=== PATIENT | female | born 1955 | race Caucasian/White ===

== ENCOUNTER 2018-04-08 16:59 | Emergency (ER) | payer MEDICARE, SELFPAY ==
[2018-04-08 17:00] VITALS: BP 139/86; PULSE 91; RESP 16; TEMP 36.4; O2SAT 93; BMI 30.4
--- NOTE | 2018-04-08 17:26 | EKG12_ITS ---
Test Reason : DYSRHYTHMIA Blood Pressure : / mmHG Vent. Rate : 080 BPM Atrial Rate : 080 BPM P-R Int : 170 ms QRS Dur : 076 ms QT Int : 390 ms P-R-T Axes : 069 056 051 degrees QTc Int : 449 ms Normal sinus rhythm Normal ECG Confirmed by MEBLA PELLETIER, ROBERT ([id number]), graphics editor MARAL DUGGAN ([id number]) on 04/13/2018 2:47:46 PM Referred By: PASTOR Confirmed By:ROBERT REILLY MD
--- NOTE | 2018-04-08 17:28 | RAD_ITS ---
STUDY: X-RAY - PELVIS AND LEFT HIP REASON FOR EXAM: Female, 62 years old. Back and left hip pain bilateral leg and feet swelling. TECHNIQUE: Radiological exam, hip, unilateral, with pelvis when performed; 2 or 3 views. COMPARISON: None. FINDINGS: There is a non-specific bowel gas pattern. Normal visualized soft tissue structures. Normal bilateral iliac wings, sacroiliac joints and visualized sacrum. Normal bilateral superior and inferior pubic rami. Normal pubic symphysis. Normal bilateral ischial tuberosities. Normal visualized femoral head. Normal acetabulum. Normal hip joint. RAD/Hip 2-3 Views with Pelvis IMPRESSION: Normal x-ray examination of the pelvis and hip. Electronically Signed: Karen Gannon MD at 18:47 EDT , Service support ,
--- NOTE | 2018-04-08 17:29 | ED.VISSUMM ---
- ER Visit Summary Date of Service: 04/08/18 Chief Complaint: [] Bilateral lower extremity edema for weeks left hip pain History of Present Illness: The patient is a 62 F [] Street of COPD asthma hypertension anxiety and depression indicates for a number of weeks she has had bilateral lower extremity edema and left hip pain states she walks quite a bit because she has no transportation, but she suffered no injury she has had no fever no cough no chest pain shortness of breath or abdominal pain normal bowel bladder habits. She has no history of ME CHF liver disease DVT or PE she is scheduled to see her physicians end of April but did not want to wait that long, the edema is not necessarily improved with rest and again she has had no mobility no cancer no trauma no history of DVT in this is an ongoing problem involving both lower extremities Physical Examination: [] Is in no distress she is resting comforting the bed her vital signs are within normal range head neck chest unremarkable lungs sound clear the heart tones are normal abdomen soft nontender the back is unremarkable she has full range of motion of the knees hips ankles and feet there is about 1-2+ edema to the mid tib-fib regions bilaterally there is some mild edema to the feet dorsally. There is normal pulsation cap refill and sensation she has very large toenails that need to management the skin is intact there is no signs of infection DVT there is no pain to the medial thighs she has full range of motion of her hips she complains of some very mild pain over her left greater trochanter but full range of motion her gait is strong sitting stable Test Results: [] Emergency Department Course and Treatment: [] Labs x-rays EKG labs x-rays are all generally unremarkable please see those reports I have treated with 1 dose of oral Lasix chronically she looks well she has some very mild edema I explained all the above to her the need for her to elevate her legs limited to walking follow-up her family physicians for further management options there is no signs at this time infection DVT or trauma causing in the above this appears to be edematous dependent edema she has been walking quite a bit and she will follow those instructions return for change in symptoms Treatment Plan: [] Disposition: [] Home stable Impression: [] Lower extremity edema This note was generated with [employer] software. It may contain incorrect words, spelling, and punctuation that were not noted in review of the chart prior to signing ED Disposition - Plan for ED Patient: Chief Complaint: Back Referrals: Rossana Rhodes MD [Primary Care Provider] -
[2018-04-08 18:11] LABS: Absolute Lymphocyte Count 2.66 X10^3/ul (0.83-4.51); Absolute Neutrophil Count 5.9 X10^3/uL (2.0-7.7); Basophil# 0.02 X10^3/uL; Basophil% 0.2 % (0-1); Eosinophils% 3.1 % (0-5); Hematocrit 36.5 % (37-47); Hemoglobin 11.8 g/dl (12.0-15.0); Lymphocyte # 2.66 X10^3/ul (4.0); Lymphocyte % 27.9 % (19-41); Mean Corp Hgb Conc 32.3 g/gl (32-36); Mean Corpuscular Hgb 30.4 pg (27.0-32.0); Mean Corpuscular Volume 94.1 fL (81-99); Monocyte# 0.66 X10^3/uL; Monocyte% 6.9 % (0-10); Neutrophil # 5.86 X10^3/uL (2.7-7.7); Neutrophil % 61.6 % (47-70); Platelet Count 328 K/mm3 (150-450); RBC Distribution Width CV 14.9 % (11.6-14.6); RBC Distribution Width SD 50.6 fl (35.1-43.9); Red Blood Count 3.88 M/mm3 (4.2-5.4); White Blood Count 9.5 K/mm3 (4.4-11.0)
[2018-04-08 18:12] LABS: POSITIVE COUNT NO; POSITIVE DIFFERENTIAL NO; POSITIVE MORPHOLOGY NO
--- NOTE | 2018-04-08 18:20 | RAD_ITS ---
STUDY: X-RAY CHEST REASON FOR EXAM: Female, 62 years old. Back and left hip pain. Bilateral leg and feet swelling. TECHNIQUE: 1 view COMPARISON: None. FINDINGS: The lungs are clear and expanded. There is no demonstrated pleural abnormality. Normal size heart. Normal mediastinum and ivette. Normal visualized pulmonary arteries. Normal visualized aortic arch and descending thoracic aorta. Normal visualized thoracic spine. Multiple prior healed left rib fractures. There is no demonstrated abnormality of the visualized soft tissue structures of the upper abdomen. RAD/Chest 1 View (Portable) IMPRESSION: No acute cardiopulmonary findings. Negative for consolidation, atelectasis, pleural effusion or cardiomegaly. Electronically Signed: Karen Gannon MD at 18:48 EDT , Service support ,
[2018-04-08 18:31] LABS: AST(SGOT) 43 U/L (15-37); Alanine Aminotransfer ALT/SGPT 62 U/L (13-56); Albumin, Serum 3.2 g/dL (3.2-5.0); Alkaline Phosphatase 102 U/L (45-117); Anion Gap 7 (5-15); BUN 9 mg/dL (7-18); BUN/Creat Ratio 10.7 RATIO (10-20); Bilirubin, Direct 0.08 mg/dL (0.00-0.30); Calcium,Total 8.6 mg/dL (8.5-10.1); Chloride 97 mmol/L (98-107); Creatinine, Serum 0.84 mg/dL (0.55-1.02); EST Glomerular Filtration Rate 73 mL/min (>60); Est Glom Filt Rate - Afr Amer 88 mL/min (>60); Estimated Creatinine Clearance 70.84 ml/min; Globulin 3.6 g/dL (2.2-4.2); Glucose 80 mg/dL (74-106); Protein, Total 6.8 g/dL (6.4-8.2); Sodium Level 133 mmol/L (136-145)
[2018-04-08 18:31] LABS: Bacteria 0 SEEN /hpf (None Seen); Mucous, Urine 0 SEEN /hpf (<or=2+); Red Blood Cells-Urine 0 SEEN /hpf (0-5); White Blood Cells 0 SEEN /hpf (0-5)
[2018-04-08 18:41] LABS: BNP,B-Type NATRIURETIC PEPTIDE 31.7 pg/mL (0-100)
[2018-04-08 18:46] LABS: Color, Urine Yellow (Yellow); Glucose, Dipstick Normal (Normal); Ketone-Dipstick Negative (Negative); Leukocyte Esterase-Dipstick Negative /ul (Negative); Nitrite-Dipstick Negative (Negative); Occult Blood-Urine Negative /ul (Negative); Protein-Dipstick Negative (Negative); Specific Gravity, Urine 1.005 (1.002-1.030); Urine Bilirubin Dipstick Negative (Negative); Urine Clarity Clear (Clear); Urine Urobilinogen Normal (Normal)
[2018-04-08 18:54] LABS: Squamous Epithelial Cells - UA 0-5 SEEN /hpf (5-10)
--- NOTE | 2018-04-08 19:06 | ED.DEP ---
ED Disposition - Plan for ED Patient: Chief Complaint: Back Instructions: ED Leg Swelling Bilateral Referrals: Rossana Rhodes MD [Primary Care Provider] -
[2018-04-08] MEDS: Furosemide 40 MG Tablet PO (19:11)
[2018-04-08 19:27] VITALS: BP 156/84; PULSE 80; RESP 20; O2SAT 94
== END 2018-04-08 19:28 | disposition home or self-care (01) ==
PROVIDERS: Emergency Provider Emergency Medicine; Family Provider Internal Medicine; PCP Internal Medicine
DX: R60.0 Localized edema (principal); M25.552 Pain in left hip; J44.9 Chronic obstructive pulmonary disease, unspecified; I10 Essential (primary) hypertension; F41.9 Anxiety disorder, unspecified; F32.9 Major depressive disorder, single episode, unspecified; Z79.899 Other long term (current) drug therapy
CPT/HCPCS: 71045; 73502; 80048; 80076; 81001; 83880; 84484; 85025; 87086; 87088; 93005; 99284; A4216

== ENCOUNTER 2018-08-20 13:15 | Emergency (ER) | payer MEDICARE, SELFPAY ==
[2018-08-20 13:15] VITALS: BP 169/99; PULSE 69; RESP 13; O2SAT 97
[2018-08-20 13:16] VITALS: BP 169/99; PULSE 75; RESP 18; TEMP 36.7; O2SAT 97; BMI 27.4
--- NOTE | 2018-08-20 13:32 | RAD_ITS ---
STUDY: X-RAY CHEST REASON FOR EXAM: Female, 62 years old. Left chest wall pain following a fall. TECHNIQUE: PA and lateral views of the chest. COMPARISON: Comparison is made with prior study dated April 08, 2018. FINDINGS: EKG electrodes are seen. Hyperinflation. Scattered calcified granulomas. Minimal increased markings at the lung bases suggestive of basilar scarring. There is no demonstrated pleural abnormality. Normal size heart. Normal mediastinum and ivette. Normal visualized pulmonary arteries. Normal visualized aortic arch and descending thoracic aorta. Normal visualized thoracic spine. Normal visualized ribs, clavicles, and shoulders. There is no demonstrated abnormality of the visualized soft tissue structures of the upper abdomen. RAD/Chest PA and Lateral IMPRESSION: Hyperinflation. Mild increased linear markings at the lung bases suggestive of basilar scarring. Electronically Signed: Gutierrez Francis MD at 14:18 EST Tel [phone], Service support ,
--- NOTE | 2018-08-20 14:05 | ED.VISSUMM ---
- ER Visit Summary Date of Service: 08/20/18 Chief Complaint: Left-sided chest pain History of Present Illness: The patient is a 62 F states that she has had gradual intermittent sharp chest pain in the left chest wall for 1 month. It is nonexertional. Not associated with shortness of breath, nausea or diaphoresis. She states she has had a negative stress test in the past. Has never had a cardiac catheterization. She states it is worse with movement or sitting upright. She denies any history of DVT or PE. No recent travel, surgery, immobilization. No recent hospitalization or swelling in her calves or pain. No hemoptysis. Physical Examination: Well-appearing middle-age female. Vital signs are stable afebrile. Pulse ox 97% on room air no hypoxia. H EENT exam unremarkable. Neck nontender no JVD no lymphadenopathy. Lungs clear to auscultation bilaterally. Heart regular rhythm no murmur heart rate about 70. Chest wall is reproducibly tender in the lower sternum and lower left rib cage. There is no ecchymosis or bruising. No subcu air or crepitance. This is the same pain she is having. Abdomen soft and nontender. Normal bowel sounds no peritoneal signs. Extremities moves all 4. Calves nontender no edema nor cords. Neurologically she is awake and alert with no focal motor or sensory deficits. Equal symmetrical drywall hanger helper strength. Lower extremities calves are nontender without edema or cords. Back exam nontender. Test Results: Patient's EKG showed a sinus rhythm at a rate of 74 with no acute signs of IA or ischemia. No pericarditis. Chest x-ray 2 views read by myself shows no acute abnormality. Normal cardiac silhouette. Mediastinum. No pneumothorax. No infiltrate. Emergency Department Course and Treatment: Patient's exam and history consistent with chest wall pain. Consistent with her stating that she fell. This does not seem to be cardiac. Treatment Plan: Discharged home. Ice to chest wall. Tylenol and Motrin for pain. Follow-up with her primary care physician if not improving. Disposition: Discharge Impression: Left chest wall pain status post fall This note was generated with [employer] dictation software. It may contain incorrect words, spelling, and punctuation that were not noted in review of the chart prior to signing ED Disposition - Plan for ED Patient: Chief Complaint: Chest Pain Referrals: Rossana Rhodes MD [Primary Care Provider] -
--- NOTE | 2018-08-20 14:09 | ED.DCSUM_ITS ---
- ER Visit Summary Date of Service: 08/20/18 Chief Complaint: Left-sided chest pain History of Present Illness: The patient is a 62 F states that she has had gradual intermittent sharp chest pain in the left chest wall for 1 month. It is nonexertional. Not associated with shortness of breath, nausea or diaphoresis. She states she has had a negative stress test in the past. Has never had a cardiac catheterization. She states it is worse with movement or sitting upright. She denies any history of DVT or PE. No recent travel, surgery, immobilization. No recent hospitalization or swelling in her calves or pain. No hemoptysis. Physical Examination: Well-appearing middle-age female. Vital signs are stable afebrile. Pulse ox 97% on room air no hypoxia. H EENT exam unremarkable. Neck nontender no JVD no lymphadenopathy. Lungs clear to auscultation bilaterally. Heart regular rhythm no murmur heart rate about 70. Chest wall is reproducibly tender in the lower sternum and lower left rib cage. There is no ecchymosis or bruising. No subcu air or crepitance. This is the same pain she is having. Abdomen soft and nontender. Normal bowel sounds no peritoneal signs. Extremities moves all 4. Calves nontender no edema nor cords. Neurologically she is awake and alert with no focal motor or sensory deficits. Equal symmetrical coal screener strength. Lower extremities calves are nontender without edema or cords. Back exam nontender. Test Results: Patient's EKG showed a sinus rhythm at a rate of 74 with no acute signs of HI or ischemia. No pericarditis. Chest x-ray 2 views read by myself shows no acute abnormality. Normal cardiac silhouette. Mediastinum. No pneumothorax. No infiltrate. Emergency Department Course and Treatment: Patient's exam and history consistent with chest wall pain. Consistent with her stating that she fell. This does not seem to be cardiac. Treatment Plan: Discharged home. Ice to chest wall. Tylenol and Motrin for pain. Follow-up with her primary care physician if not improving. Disposition: Discharge Impression: Left chest wall pain status post fall This note was generated with [employer] dictation software. It may contain incorrect words, spelling, and punctuation that were not noted in review of the chart prior to signing ED Disposition - Plan for ED Patient: Chief Complaint: Chest Pain Referrals: Rossana Rhodes MD [Primary Care Provider] -
--- NOTE | 2018-08-20 14:09 | ED.DEP ---
ED Disposition - Plan for ED Patient: Disposition: Home or Assisted Living Chief Complaint: Chest Pain Instructions: ED Strain Chest Wall Referrals: Rossana Rhodes MD [Primary Care Provider] - 1 Week if not improving Additional Instructions: Ice to your chest wall. Tylenol and Motrin for chest wall pain. Use a pillow to brace your rib cage. If not improving follow-up with your doctor or if you are feeling worse.
[2018-08-20 14:23] VITALS: BP 151/74; PULSE 77; RESP 14; RESP 18; O2SAT 97
--- NOTE | 2018-08-20 15:15 | EKG12_ITS ---
Test Reason : CHEST PAIN Blood Pressure : / mmHG Vent. Rate : 074 BPM Atrial Rate : 074 BPM P-R Int : 162 ms QRS Dur : 074 ms QT Int : 418 ms P-R-T Axes : 074 054 046 degrees QTc Int : 463 ms Normal sinus rhythm Normal ECG Confirmed by LIBORIO PELLETIER, HANG ([id number]), rewrite editor MARAL DUGGAN ([id number]) on 08/23/2018 1:55:03 PM Referred By: SHERI Confirmed By:HANG CAPONE MD
== END 2018-08-20 14:36 | disposition home or self-care (01) ==
LOC: ED 14:27
PROVIDERS: Emergency Provider Emergency Medicine; Family Provider Internal Medicine; PCP Internal Medicine
DX: R07.89 Other chest pain (principal); W19.XXXA Unspecified fall, initial encounter; Y93.9 Activity, unspecified; Y92.9 Unspecified place or not applicable; J45.909 Unspecified asthma, uncomplicated; Z86.73 Personal history of transient ischemic attack (TIA), and cerebral infarction without residual deficits; Z79.899 Other long term (current) drug therapy; Z72.0 Tobacco use
CPT/HCPCS: 71046; 93005; 99282; A4216

== ENCOUNTER → 2018-11-30 08:46 | Outpatient (CLI) | payer MEDICARE, SELFPAY ==
[2018-11-30 09:36] LABS: Hematocrit 42.2 % (37-47); Hemoglobin 13.2 g/dl (12.0-15.0); Mean Corp Hgb Conc 31.3 g/gl (32-36); Mean Corpuscular Hgb 29.9 pg (27.0-32.0); Mean Corpuscular Volume 95.7 fL (81-99); Mean Platelet Vol. 10.3 fl (6.2-12.0); Platelet Count 391 K/mm3 (150-450); RBC Distribution Width CV 16.1 % (11.6-14.6); RBC Distribution Width SD 56.4 fl (35.1-43.9); Red Blood Count 4.41 M/mm3 (4.2-5.4); Scan Indicated on CBC? Y/N NO; White Blood Count 6.8 K/mm3 (4.4-11.0)
[2018-11-30 10:00] LABS: ALB/GLOB Ratio 0.9 RATIO (0.9-2.4); AST(SGOT) 18 U/L (15-37); Alanine Aminotransfer ALT/SGPT 20 U/L (13-56); Albumin, Serum 3.5 g/dL (3.2-5.0); Alkaline Phosphatase 117 U/L (45-117); Anion Gap 6 (5-15); BUN 6 mg/dL (7-18); BUN/Creat Ratio 5.8 RATIO (10-20); Calcium,Total 8.6 mg/dL (8.5-10.1); Chloride 104 mmol/L (98-107); Creatinine, Serum 1.03 mg/dL (0.55-1.02); EST Glomerular Filtration Rate 58 mL/min (>60); Est Glom Filt Rate - Afr Amer 70 mL/min (>60); Globulin 3.9 g/dL (2.2-4.2); Glucose 93 mg/dL (74-106); Potassium 3.5 mmol/L (3.5-5.1); Prolactin 98.1 ng/mL; Protein, Total 7.4 g/dL (6.4-8.2); Sodium Level 138 mmol/L (136-145)
== END ==
PROVIDERS: Family Provider Internal Medicine; PCP Internal Medicine; Referring Provider Psychiatry & Neurology Psychiatry; Visit Provider Psychiatry & Neurology Psychiatry
DX: Z79.899 Other long term (current) drug therapy (principal)
CPT/HCPCS: 36415; 80053; 83036; 84146; 85027

== ENCOUNTER 2019-02-16 10:26 | Emergency (ER) | payer MEDICARE, SELFPAY ==
[2019-02-16 10:27] VITALS: BP 120/69; PULSE 65; RESP 17; TEMP 36.7; O2SAT 95; BMI 27.6
--- NOTE | 2019-02-16 10:44 | ED.VIS.LOWEX ---
History of Present Illness Chief Complaint: Lower Extremity Injury Informant: Patient Occurred: Yesterday Mechanism/Context: Injury, Fall Current Severity: Mild Maximum Severity: Moderate Worsened by: Attempt to bear weight Relieved by: Rest and elevation Associated Symptoms: Loss of Funtion. Negative for: Parasthesia, Weakness Narrative: Patient is a 63-year-old woman who lives alone presents to the emerge department because of injury to right foot that occurred last evening. She states she was standing at the sink washing her hands after using the restroom. She fell. She injured her right foot. She presented by ambulance because she is unable to bear weight. She denies paresthesia, anesthesia or motor weakness. She denied head trauma. She denies neck pain. She denied cardiac arrest story symptoms prior to falling. She has no other complaints. Tetanus Immunization: 5-10 years Prior similar symptoms: No Recent Illness/Hospitalization: No - Past Medical History (1) Benign essential hypertension Status: Chronic (2) Depression Status: Chronic Past Medical History - Allergies and Home Meds Allergies/Adverse Reactions: Allergies No Known Allergies Allergy (Verified 02/16/19 10:27) Primary Care Physician: Rossana Rhodes MD [Primary Care Provider] - Prior records reviewed: Yes Lives: Alone Smoking Status: Current every day smoker Alcohol: None Review of Systems General: Denies: Chills, Fever, Malaise, Subjective, Sweats, Weight loss Eyes: Denies: Visual changes - bilaterally, Blurred Vision - bilaterally ENT: Denies: Rhinorrhea, Sore throat Cardiovascular: Denies: Chest pain Respiratory: Denies: Dyspnea, Cough, Sputum, Dyspnea on exertion Gastrointestinal: Denies: Nausea, Vomiting Genitourinary: Denies: Dysuria, Hematuria, Frequency Musculoskeletal: Reports: Swelling, Extremity Pain. Denies: Myalgias, Arthralgias, Neck pain, Back pain, -, - Skin: Denies: Rash, Wounds Neurological: Denies: Headache, Weakness, Numbness Hematologic: Denies: Easy bruising, Easy bleeding Physical Exam Vital Signs/Narrative: Vital Signs Temp Pulse Resp BP Pulse Ox 02/16/19 10:27 98.0 F 65 17 120/69 95 - Extremity Exam Right Femur: Negative for: Abrasion, Contusion, Deformity, Edema, Hematoma, Limited ROM, - Right Knee: Negative for: Abrasion, Contusion, Deformity, Edema, Hematoma, Limited ROM, - Right Tib fib: Negative for: Abrasion, Contusion, Deformity, Edema, Hematoma, Limited ROM, - Right Ankle: Negative for: Abrasion, Contusion, Deformity, Edema, Hematoma, Limited ROM, - - No pain palpation over the lateral or medial malleolus. Anterior drawer test is negative. Right Foot: Edema, Hematoma, Limited ROM, - - There is pain palpation over the metatarsal bones and tarsal bones.. Negative for: Abrasion, Contusion, Deformity Right Toe: Negative for: Abrasion, Contusion, Deformity, Edema, Hematoma, Limited ROM, - General: Well nourished, Well developed Head: Normocephalic, Atraumatic Eyes: Perrl, EOMI. Negative for: Pale conjunctiva, Scleral icterus, - ENT: No Trauma, Moist Mucous Membranes Neck: Negative for: Nontender, Full ROM, Spinal Tenderness, Paraspinal Tenderness, - Cardiovascular: Regular rate, Regular rhythm, No murmurs, Normal S1, Normal S2 Respiratory: No distress, CTA bilaterally, Chest nontender Skin: Normal color, No rash, Trauma - There is discoloration ecchymosis on the dorsal and plantar surface of right foot.. Negative for: Cyanosis, Diaphoresis, Jaundice, No Trauma Neurological: Alert, Oriented x3, Cranial nerves II-XII grossly intact, Normal Strength, Normal Sensation. Negative for: Normal Gait Psychological: Normal affect Diagnostic/Tx/Re-eval Chest X-Ray - ED: Read by ED Physician, - - Three-view x-ray of the right foot reveals transverse fracture second, third and fourth metatarsal without displacement or angulation. - Medical Decision Making Patient was medicated with 400 mg ibuprofen and one [place] tablet. X-ray of the foot was obtained to evaluate for fracture versus strain versus contusion. Procedures - Lower Extremity Splints Lower Extremity Splint: Plaster, - - Posterior short leg Splint Fabrication: Fabricated Location: Right - Patient tolerated procedure. ED Disposition - Plan for ED Patient: Disposition: Home or Assisted Living Diagnosis: Nondisplaced fracture of third metatarsal bone, right foot, initial encounter for closed fracture, Nondisplaced fracture of fourth metatarsal bone, right foot, initial encounter for closed fracture Instructions: ED Fx Foot, ED Splint Care Plaster Prescriptions: Hydrocodone Bitart/Apap 5-325 [[place] 5MG-325MG] 1 tab PO Q6H PRN PRN 3 Days #10 tab PRN Reason: Pain Referrals: Rossana Rhodes MD [Primary Care Provider] - Surinder Phillips DO [STAFF PHYSICIAN] - 5-7 Days
--- NOTE | 2019-02-16 10:50 | RAD_ITS ---
STUDY: X-RAY - RIGHT FOOT CLINICAL: Female, 63 years old. Injury following a fall. TECHNIQUE: 3 view(s) of the foot. COMPARISON: None. FINDINGS: Normal talus, calcaneus, and tarsal bones. Normal visualized subtalar, talonavicular, calcaneocuboid, tarsal and tarsometatarsal articulations. Nondisplaced transverse fractures involving the bases of the second third and fourth metatarsals. Normal metatarsophalangeal joint of the great toe. Normal tibial and fibular sesamoid bones. Normal interphalangeal joint of the great toe. Normal phalanges of the great toe. Normal second through fifth metatarsophalangeal joints. Normal interphalangeal joints and phalanges of the lesser toes. Soft tissue swelling. RAD/Foot min 3 Views IMPRESSION: Nondisplaced transverse fractures involving the bases of the second third and fourth metatarsals. Soft tissue swelling. Electronically Signed: Gutierrez Francis, at 11:09 EDT , Service support ,
[2019-02-16] MEDS: HYDROcodone Bitartrate/Apap 5/325 Tablet PO (10:58)
[2019-02-16] MEDS: Ibuprofen 200 MG Tablet 400 MG PO (10:58)
--- NOTE | 2019-02-16 13:13 | ED.RN ---
ATTEMPTED TO TEACH PT CRUTCH WALKING, PT IS UNSTEADY, HAS DIFFICULTY, NEEDED HELP TO CHAIR. LEFT PT IN ROOM SITING IN CHAIR, WENT TO INFORM DR TEAGUE OF PT NOT DOING WELL WITH CRUTCHES. PT THEN HAD UNWITNESSED FALL, STATES I THOUGHT I WOULD TRY TO GET UP. PT DENIED ANY INJURY, PT ASSISTED BACK TO BED. DR TEAGUE INFORMED OF FALL. PHYSICAL THERAPY CONSULT ORDERED.
--- NOTE | 2019-02-16 14:26 | CASEMGMT ---
Case Management Progress Note: Transportation This travel writer s/w PT- down in ER and evaluated patient per ER MD request. Patient able to ambulate good with walker. Patient states that she has walker at home, states her son Marcello is at home, does not live there but is there and does not drive but can see if a neighbor can come get her. This Cm discussed any Transportation issues as patient does not drive and walks around for shopping, states finds a ride to get to her appointments. This travel writer discussed patient calling through her Insurance- has [facility] [employer] [facility] and arranging transportation if needed for appointments, provided patient with [employer] contact number. Primary nurse Kavon attempted to contact patient karla Armendariz with no answer, this CM called at [phone]- [employer] at , S/w Shellye and arranged transportation via [employer] in a [employer] last three digits of License #[id number], ETA 10min from end of conversation, patient acknowledges and agrees, Dr Cardona made aware, Charge Nurse Nasra aware. Chata Juan RNCM
[2019-02-16 14:29] VITALS: BP 124/77; PULSE 68; RESP 15; O2SAT 97
== END 2019-02-16 14:30 | disposition home or self-care (01) ==
PROVIDERS: Emergency Provider Emergency Medicine; Family Provider Internal Medicine; PCP Internal Medicine
DX: S92.324A Nondisplaced fracture of second metatarsal bone, right foot, initial encounter for closed fracture (principal); S92.334A Nondisplaced fracture of third metatarsal bone, right foot, initial encounter for closed fracture; S92.344A Nondisplaced fracture of fourth metatarsal bone, right foot, initial encounter for closed fracture; W19.XXXA Unspecified fall, initial encounter; Y93.9 Activity, unspecified; Y92.9 Unspecified place or not applicable; I10 Essential (primary) hypertension; F32.9 Major depressive disorder, single episode, unspecified; Z79.899 Other long term (current) drug therapy; F17.200 Nicotine dependence, unspecified, uncomplicated
CPT/HCPCS: 29515; 73630; 97162; 99285

== ENCOUNTER → 2019-02-25 | Outpatient (CLI) | payer MEDICARE, SELFPAY ==
[2019-02-25 10:17] VITALS: BMI 27.6
--- NOTE | 2019-02-25 10:19 | RAD_ITS ---
HISTORY: Pain and swelling top of foot, pt. fell COMPARISON: Comparison studies February 16, 2019 FINDINGS: # of images incl. paperwork: 3 XR Foot 3 views of the right foot. Fractures at the base of the second third and fourth metatarsals have not yet completely healed. Alignment is unchanged. Soft tissue swelling remains. RAD/Foot min 3 Views IMPRESSION: Healing second third and fourth proximal metatarsal fractures. at 0058 Reported and signed by: Juan Mandel MD Electronically Signed: Juan Mandel MD at 0:57 EDT Tel , Service support ,
== END | disposition home or self-care (01) ==
LOC: HPRAD 10:18
PROVIDERS: Family Provider Internal Medicine; PCP Internal Medicine; Referring Provider Orthopaedic Surgery; Visit Provider Orthopaedic Surgery
DX: M79.671 Pain in right foot (principal)
CPT/HCPCS: 73630

== ENCOUNTER → 2019-04-11 | Outpatient (CLI) | payer MEDICARE, SELFPAY ==
[2019-03-08 10:19] VITALS: BMI 27.6
--- NOTE | 2019-04-11 11:28 | RAD_ITS ---
STUDY: X-RAY - RIGHT FOOT CLINICAL: Female, 63 years old. Injured foot, pain on the top of the foot. TECHNIQUE: 3 view(s) of the foot. COMPARISON: None. FINDINGS: Minimal DJD interphalangeal joints and 1st digit metatarsophalangeal joint. Prominent osteopenia. Fracture traversing the proximal metaphysis of the 2nd, 3rd and 4th metatarsals, no significant displacement. Lisfranc interval preserved. There is no visible fracture of the tarsal bones. Intertarsal and tarsometatarsal articulations appear preserved. Preserved arch. RAD/Foot min 3 Views IMPRESSION: Fracture traversing the base of the 2nd, 3rd and 4th metatarsals. Electronically Signed: Phani Bianchi MD at 12:54 EDT Tel , Service support ,
== END | disposition home or self-care (01) ==
LOC: HPRAD 11:27
PROVIDERS: Family Provider Internal Medicine; PCP Internal Medicine; Referring Provider Orthopaedic Surgery; Visit Provider Orthopaedic Surgery
DX: S92.301A Fracture of unspecified metatarsal bone(s), right foot, initial encounter for closed fracture (principal)
CPT/HCPCS: 73630

== ENCOUNTER 2019-08-29 03:25 | Emergency (ER) | payer MEDICARE, SELFPAY ==
[2019-05-09 11:36] VITALS: BMI 27.6
[2019-08-29 03:26] VITALS: BP 148/88; PULSE 98; RESP 24; TEMP 36.8; O2SAT 92; BMI 25.0
[2019-08-29 03:33] VITALS: O2SAT 92
--- NOTE | 2019-08-29 03:33 | RAD_ITS ---
STUDY: X-RAY CHEST REASON FOR EXAM: Female, 63 years old. Fell, Right lower rib cage pain, chronic shortness of breath, smoker TECHNIQUE: PA and lateral views of the chest. COMPARISON: 08/20/2018 FINDINGS: There is no demonstrated pneumothorax. The hyperinflation. Stable 2 mm calcified nodule right mid lung. There is no demonstrated pleural abnormality. Normal size heart. Normal mediastinum and ivette. Normal visualized pulmonary arteries. Normal visualized aortic arch and descending thoracic aorta. Normal visualized thoracic spine. There are degenerative changes of the acromioclavicular joints. Stable posterior left upper rib deformities. There is no demonstrated abnormality of the visualized soft tissue structures of the upper abdomen. RAD/Chest PA and Lateral IMPRESSION: No acute cardiopulmonary disease. No significant interval change. Electronically Signed: Lorrie Ashton MD at 4:17 EST , Service support ,
--- NOTE | 2019-08-29 03:33 | EKG12_ITS ---
Test Reason : FALL Blood Pressure : / mmHG Vent. Rate : 093 BPM Atrial Rate : 093 BPM P-R Int : 148 ms QRS Dur : 070 ms QT Int : 370 ms P-R-T Axes : 084 076 056 degrees QTc Int : 460 ms Normal sinus rhythm Nonspecific ST abnormality Abnormal ECG Confirmed by LIBORIO PELLETIER, HANG ([id number]), brands editor VINCENT PINEDA ([id number]) on 08/29/2019 11:26:50 AM Referred By: LAQUITA Confirmed By:HANG CAPONE MD
--- NOTE | 2019-08-29 03:34 | ED.VISSUMM ---
- ER Visit Summary Date of Service: 08/29/19 Chief Complaint: Fall complaining of right rib cage pain History of Present Illness: The patient is a 63 F history of CVA, asthma and uncertain if she has COPD. States that she fell tonight injuring her right lower rib cage. She denies any her head. She denies any elbow C. She denies being on any blood thinners. She is a smoker. Physical Examination: Older female vital signs stable afebrile. Pulse ox 92% on room air no hypoxia. H EENT exam unremarkable atraumatic pupils round reactive light. Smell of tobacco on of breath. No facial trauma no scalp trauma nontender. C-spine nontender. Trachea midline. Normal range of motion to her neck. Lungs coarse breath sounds bilaterally. Few expiratory wheezes. Heart regular rate and rhythm no murmur. Chest wall right anterior lower rib cage tenderness. No ecchymosis or bruising. No subcu air. No crepitance. Left chest wall is nontender. Posterior ribs are nontender. Abdomen is soft nontender normal bowel sounds no peritoneal signs. No signs of bruising or trauma to the abdomen. Pelvic girdle intact. Patient moving all 4 extremities. Nontender. No deformities. No edema. Back nontender. Spine and posterior ribs nontender. No signs of trauma. Neurologically she is awake and alert. Following commands. Answering questions. She is moving all 4 extremities. Test Results: CBC White count 9 hemoglobin 12. Electrolytes unremarkable potassium 3.0. Normal creatinine and gap. EKG sinus rhythm rate of 93 with no acute change from prior EKG from 2018. Chest x-ray 2 views AP and lateral read by myself shows no acute abnormality. No rib fractures. No pneumothorax. No infiltrate. This was also read by the radiologist. Emergency Department Course and Treatment: Patient reportedly fell at home is complaining of right lower rib cage tenderness. Clinically she appears to have COPD. She has very coarse breath sounds and should be treated with aerosols. I will obtain an chest x-ray, EKG and labs. Repeat exam the patient is doing well at 0 431. She is doing well. Abdomen is benign. Her right chest wall is less tender. She and I went over her test results. She is fine with being discharged to home. Treatment Plan: Ice to her rib cage. Use a pillow to support the rib cage. Tylenol and/or Motrin for pain. Follow-up with your doctor if not improving. Disposition: Discharge Impression: Fall with right rib cage contusion This note was generated with [employer] dictation software. It may contain incorrect words, spelling, and punctuation that were not noted in review of the chart prior to signing ED Disposition - Plan for ED Patient: Referrals: Rossana Rhodes MD [Primary Care Provider] -
[2019-08-29 03:46] LABS: Bedside Glucose 88 mg/dL (70-110)
[2019-08-29 03:48] VITALS: PULSE 92; RESP 28
[2019-08-29] MEDS: Ipratropium/Albuterol Sulfate 3 ML AMPUL.NEB INHALATION (03:48)
[2019-08-29 03:53] LABS: Absolute Lymphocyte Count 3.29 X10^3/uL (0.83-4.51); Absolute Neutrophil Count 4.1 X10^3/uL (2.0-7.7); Basophil# 0.04 X10^3/uL; Basophil% 0.4 % (0-1); Eosinophil# 0.76 X10^3/uL; Eosinophils% 8.3 % (0-5); Hemoglobin 12.6 g/dL (12.0-15.0); Lymphocyte # 3.29 X10^3/ul (4.0); Mean Corp Hgb Conc 32.3 g/dL (32-36); Mean Corpuscular Volume 92.9 fL (81-99); Mean Platelet Vol. 10.9 fl (6.2-12.0); Monocyte# 0.98 X10^3/uL; Monocyte% 10.7 % (0-10); NRBC Flagged by Analyzer 0 % (0-5); Neutrophil # 4.05 X10^3/uL (2.7-7.7); Neutrophil % 44.3 % (47-70); Platelet Count 255 K/mm3 (150-450); RBC Distribution Width CV 15.4 % (11.6-14.6); RBC Distribution Width SD 52.5 fl (35.1-43.9); White Blood Count 9.2 K/mm3 (4.4-11.0)
[2019-08-29 04:02] LABS: Anion Gap 5 (5-15); BUN 13 mg/dL (7-18); Calcium,Total 8.6 mg/dL (8.5-10.1); Chloride 105 mmol/L (98-107); Creatinine, Serum 0.93 mg/dL (0.55-1.02); EST Glomerular Filtration Rate 65 mL/min (>60); Est Glom Filt Rate - Afr Amer 79 mL/min (>60); Estimated Creatinine Clearance 55.75 ml/min; Glucose 88 mg/dL (74-106); Sodium Level 142 mmol/L (136-145)
[2019-08-29 04:37] VITALS: BP 125/79; PULSE 94; RESP 20; O2SAT 96
--- NOTE | 2019-08-29 04:38 | ED.DEP ---
ED Disposition - Plan for ED Patient: Disposition: Home or Assisted Living Instructions: RIB: CONTUSION vs MINOR FRACTURE Referrals: Rossana Rhodes MD [Primary Care Provider] - 1 Week if not improving Additional Instructions: Your labs and chest x-ray are unremarkable. There are no obvious broken ribs. Ice to your right chest wall. Tylenol and/or Motrin for pain. Use a pillow to support your rib cage that will help with the discomfort. Follow-up with your doctor if not improving.
--- NOTE | 2019-08-29 05:17 | ED.RN ---
SAW PT WALK OUT THE SQUAD DOORS AND TURN LEFT.
== END 2019-08-29 05:18 | disposition home or self-care (01) ==
PROVIDERS: Emergency Provider Emergency Medicine; Family Provider Internal Medicine; PCP Internal Medicine
DX: S20.211A Contusion of right front wall of thorax, initial encounter (principal); J44.9 Chronic obstructive pulmonary disease, unspecified; R11.2 Nausea with vomiting, unspecified; R19.7 Diarrhea, unspecified; W19.XXXA Unspecified fall, initial encounter; Y93.9 Activity, unspecified; Y92.9 Unspecified place or not applicable; Z86.73 Personal history of transient ischemic attack (TIA), and cerebral infarction without residual deficits; Z79.899 Other long term (current) drug therapy; F17.200 Nicotine dependence, unspecified, uncomplicated
CPT/HCPCS: 71046; 80048; 82962; 85025; 93005; 94640; 99284; A4216

== ENCOUNTER 2021-02-12 12:09 | Emergency (ER) | payer MEDICARE, MEDICAID, SELFPAY ==
[2021-02-12 12:27] VITALS: BP 129/74; PULSE 82; RESP 16; TEMP 36.4; O2SAT 97; BMI 21.9
--- NOTE | 2021-02-12 12:34 | EX.ED.DYSGE1 ---
HPI History of Present Illness Chief Complaint: Wound Narrative Narrative: Patient is here complaining of itchy skin related to bedbug exposure some is been ongoing she has a past service coming to deal with that issue at her home on arrival to the ED she was eval by nursing staff they noticed that she had signs of lice infestations of her hair she was taken back to the appropriate room decontaminated and placed in a hospital gown. Patient reports she has had no fever no cough no other complaints just constant itching of her skin she is aware of the back but issue but has had trouble getting pesticide services PFSH PFS Home Medications clonazepam 0.5 mg PO BID 12/19/16 [History Last Taken 12/19/16] fluoxetine 40 mg PO DAILY 12/19/16 [History Last Taken 12/19/16] risperidone 1 mg PO DAILY 12/19/16 [History Last Taken 12/19/16] trazodone 300 mg PO QHS 12/19/16 [History Last Taken Unknown] Breo Ellipta 100-25 Mcg INH 1 puff IH DAILY 04/08/18 [History Last Taken Unknown] albuterol sulfate [Proair Hfa (SP)Vent Pts] 1 - 2 puff INHALATION Q4H PRN PRN 08/20/18 [History Last Taken Unknown] pantoprazole 40 mg PO DAILY 08/20/18 [History Last Taken Unknown] sucralfate 1 g PO 4X/DAY 08/20/18 [History Last Taken Unknown] hydrocodone-acetaminophen 5-325mg 5mg-325mg 1 tab PO Q6H PRN #20 tab 03/05/19 [Rx Last Taken Unknown] Allergy/AdvReac Type Severity Reaction Status Date / Time No Known Allergies Allergy Verified 02/12/21 12:10 Social History (Updated 04/11/19 @ 13:[address] Surinder Phillips, DO) Smoking Status: Current every day smoker tobacco type: cigarettes ROS ROS ED Constitutional Constitutional ED: Reports subjective, sweats and other; Denies chills, fever(s) or weight loss Eyes Eyes: Denies blurry vision or change in vision ENT ENT ED: Denies ear pain Cardiovascular Cardiovascular: Denies chest pain or palpitations Respiratory/Chest Respiratory/Chest: Denies dyspnea Gastrointestinal Gastrointestinal: Denies abdominal pain, nausea or vomiting Genitourinary Genitourinary ED: Denies dysuria or hematuria Musculoskeletal Musculoskeletal: Denies arthralgias or myalgias Integumentary Reports rash; Denies abscess Neurologic Neurologic: Denies weakness Psychiatric Psychiatric: Denies anxiety or depression Endocrine Endocrinology: Denies polydipsia or polyuria Allergic/Immunologic Allergic/Immunologic ED: Denies urticaria EXAM Physical Exam Narrative Exam Narrative: Her general exam is unremarkable she does have some areas where she has been scratching her skin primarily to the neck the hair now shows no signs of infestation I do not see any infestation signs of any other part of her body but again nursing just did completely cleanse her decontaminate her in the shower process at this facility Const Vital Signs: 02/12/21 12:27 Temperature 97.6 F L Temperature Source Temporal Pulse Rate 82 Respiratory Rate 16 Blood Pressure 129/74 H Blood Pressure Mean 92 Pulse Ox 97 Oxygen Delivery Method Room Air Positive well developed General Appearance ED: well developed HEENT Reports normocephalic Negative for trauma Eyes EOMs intact bilaterally Neck supple Chest Wall inspection of chest normal Resp normal respiratory effort Cardio regular rate GI non-tender and non-distended Back/Spine Back/Spine Narrative: unremarkable Extremity normal to inspection Neuro oriented x3 and CN's II-XII intact bilaterally Sensorium / Orientation: alert Psych mental status grossly normal Skin no rashes or lesions noted MDM MDM MDM Narrative Medical decision making narrative: Patient is comfortable with discharge now again she has pesticide services coming she will obtain [id number] medication shampoo for the lice she will discuss home housing issues with director of social services at the hospital and her landlord who she indicates was trying to kick her out of the apartment today, director of social services is discussing things with her Home stable Final impression lice and bedbug infestation Discharge Plan Triage Chief Complaint: Wound ED Provider: Dimitris Odom Dx/Rx/DC Orders Instructions: ED Head Lice, ED Bedbug Bites Prescriptions: No Action fluoxetine 40 MG capsule 40 mg PO DAILY RF: 0 clonazepam 0.5 MG tablet 0.5 mg PO BID RF: 0 trazodone 100 MG tablet 300 mg PO QHS RF: 0 risperidone 1 MG tablet 1 mg PO DAILY RF: 0 Breo Ellipta 100-25 Mcg INH 1 puff IH DAILY RF: 0 albuterol sulfate [ProAir HFA] 1 PUFF inhaler 1 - 2 puff inhalation Q4H PRN PRN (Reason: Sob &/Or Wheezing) RF: 0 sucralfate 1 GM tablet 1 g PO 4X/DAY RF: 0 pantoprazole 40 MG tablet 40 mg PO DAILY RF: 0 hydrocodone-acetaminophen [[place]] 5-325 mg tablet 1 tab PO Q6H PRN (Reason: pain) Qty: 20 RF: 0 Primary Care Provider: Rossana Rhodes Referrals: Rossana Rhodes MD [Primary Care Provider] -
[2021-02-12 12:43] VITALS: BP 129/74; PULSE 82; RESP 16; TEMP 36.4; O2SAT 97
--- NOTE | 2021-02-12 12:45 | NURSING ---
Patient is texting son to come and get her. She has double bagged clothes and given socks and paper scrubs to go home in
--- NOTE | 2021-02-12 13:30 | ED.RN ---
1310pt on the phone with insurance company after sw called and verified pt had ride available through them. They reported pt needed to initiate request. tis nurse in room. insurance told pt needed to speak with nurse first. this nurse took over. multiple tranfers and given multiple different information. pt talking wtih inurance when nurse left the room. [phone]
--- NOTE | 2021-02-12 14:11 | ED.RN ---
Called insurance at [phone] and set up transportation for patient to go home, ETA 3 hours.
--- NOTE | 2021-02-12 14:40 | ED.RN ---
case manageer working on ride for patient
--- NOTE | 2021-02-12 14:45 | ED.RN ---
pt called out inusrance asking to speak with nurse again. this nurse gave then requested information. (pt is in tears when this nurse went on room. pt reports someone from insurance hung up on her because they couldn't understand her.).after info given insurance company reports pt has no rides on her plan, unable to transport patient.
--- NOTE | 2021-02-12 14:53 | ED.RN ---
pt called out and reports was able to get a friend that would come pick her up. to be her within the hour.
--- NOTE | 2021-02-12 15:44 | CM.ED ---
WAI Note Referral Source: MD Referral Reason: MD advised that Patients landlorrichard called and stated that patient was evicted today WAI met with patient in her room. Patient reports she got a call from landlord saying that she has to be out today. Patient said that she has no where else to go. Patient said that she is familiar with the [facility] as she went there for activities. Patient said that she lives with her disabled son and that he's not supposed to live there so they are getting evicted today. SW asked if there was legal proceeding and patient said no. SW asked about any other family and patient said no . She said that she has a sister, who lives on [address], but she doesn't have her phone number. Patient said that she has H[employer] voucher but is [place] the [place] for [facility]. Patient said that she has a son but I am not sure where she lives. Patient said that her son, who resides wth her, can't come as the car won't start. Patient then called her landlord and spoke to Kourtney. Kourtney said that patient needs to get out JULY but is not evicted today. Kourtney said that patient needs to leave as soon as she can and related that the apartment was a littered mess today. Kourtney said you told me you were getting to patient. Patient hung up the phone and stated she had told Kourtney that she was getting but I just said it to say it..I don't have anyone that loves me. WAI called patient's insurance, [employer], spoke to Ching Hernandez, and got the number for transportation provider. WAI called [employer] and spoke to Will. She reports patient has not signed up for transportation benefit for 2020. WAI asked patient to call [employer] and set up transportation benefit for patient. WAI provided patient with number for [facility], manny through [employer] WAI explained that there was a senior Outreach program through [employer]. Patient gave verbal consent to make referral to senior outreach Program. RN advised that patient had found friend to take her home. WAI faxed referral to Senior Outreach Program at [facility]. Plan: Home with resources Zina RIDER
== END 2021-02-12 15:25 | disposition home or self-care (01) ==
PROVIDERS: Emergency Provider Emergency Medicine; PCP Internal Medicine
DX: B85.2 Pediculosis, unspecified (principal)
CPT/HCPCS: 99284

== ENCOUNTER 2021-02-22 16:58 | Emergency (ER) | payer MEDICARE, MEDICAID, SELFPAY ==
[2021-02-22 17:01] VITALS: BP 131/84; PULSE 82; RESP 18; TEMP 37; O2SAT 98; BMI 18.6
--- NOTE | 2021-02-22 17:15 | EKG12_ITS ---
Test Reason : Blood Pressure : / mmHG Vent. Rate : 078 BPM Atrial Rate : 078 BPM P-R Int : 136 ms QRS Dur : 074 ms QT Int : 414 ms P-R-T Axes : 072 080 074 degrees QTc Int : 471 ms Normal sinus rhythm Normal ECG Confirmed by LIBORIO PELLETIER, HANG ([id number]), industrial editor RENÉ HOUSTON ([id number]) on 02/25/2021 1:34:08 PM Referred By: CAN Confirmed By:HANG CAPONE MD
--- NOTE | 2021-02-22 17:15 | CT_ITS ---
STUDY: CT BRAIN WITHOUT CONTRAST REASON FOR EXAM: Female, 65 years old. Injury RADIATION DOSAGE (If Supplied By Facility): CTDIvol = ( 38.43 ) mGy, DLP = ( 655.05 ) mGycm TECHNIQUE: Transaxial CT imaging of the brain was performed without administration of intravenous contrast material. Individualized dose optimization techniques were used for this CT. COMPARISON: No relevant priors. FINDINGS: Brain parenchyma is without focal lesions, mass effect, acute intracranial hemorrhage, extra parenchymal fluid collections, hydrocephalus or herniation. The skull is intact. CT/Brain/Head without Contrast IMPRESSION: 1. Normal CT brain. Electronically Signed: Germain Donato MD at 18:16 EDT Tel , Service support ,
--- NOTE | 2021-02-22 17:16 | EDS_ITS ---
HPI History of Present Illness Chief Complaint: Syncope Informant: patient Narrative Narrative: 65-year-old female presents to the emergency room following a syncopal episode. Patient states that earlier in the day she was not feeling well but she ate lunch and felt better. She was sitting in a [place] [facility] [place] [facility] [place]. It is very hot and humid today. She states the windows rolled down. She then felt a strong urge to have a bowel movement and began to walk towards the store. As she walked she began to feel increasingly lightheaded. She states that she then had a syncopal episode. She believes she struck her head on the ground. She denies any chest pain or palpitations. No shortness of breath. Patient notes a generalized headache over hematoma on the side of her head where she struck the ground [facility] Medical History (Updated 02/22/21 @ 18:[address] Phil Rivero DO) Asthma Benign essential hypertension Depression Home Medications clonazepam 0.5 mg PO BID 12/19/16 [History Last Taken 12/19/16] fluoxetine 40 mg PO DAILY 12/19/16 [History Last Taken 12/19/16] risperidone 1 mg PO DAILY 12/19/16 [History Last Taken 12/19/16] trazodone 300 mg PO QHS 12/19/16 [History Last Taken Unknown] Breo Ellipta 100-25 Mcg INH 1 puff IH DAILY 04/08/18 [History Last Taken Unknown] albuterol sulfate [Proair Hfa (SP)Vent Pts] 1 - 2 puff INHALATION Q4H PRN PRN 08/20/18 [History Last Taken Unknown] pantoprazole 40 mg PO DAILY 08/20/18 [History Last Taken Unknown] sucralfate 1 g PO 4X/DAY 08/20/18 [History Last Taken Unknown] hydrocodone-acetaminophen 5-325mg 5mg-325mg 1 tab PO Q6H PRN #20 tab 03/05/19 [Rx Last Taken Unknown] Allergy/AdvReac Type Severity Reaction Status Date / Time No Known Allergies Allergy Verified 02/22/21 17:03 Social History (Updated 02/22/21 @ 17:[address] Phil Rivero DO) Smoking Status: Current every day smoker tobacco type: cigarettes substance use type: does not use ROS ROS ED Constitutional Constitutional ED: Denies chills or weight loss Eyes Eyes: Denies change in vision or diplopia ENT ENT ED: Denies ear pain, rhinorrhea or sore throat Cardiovascular Cardiovascular: Reports other Details: Syncope ; Denies chest pain, orthopnea, palpitations or racing heartbeat Respiratory/Chest Respiratory/Chest: Denies cough, dyspnea or orthopnea Gastrointestinal Gastrointestinal: Denies abdominal pain, diarrhea, nausea or vomiting Genitourinary Genitourinary ED: Denies dysuria, hematuria or urinary frequency Musculoskeletal Musculoskeletal: Denies arthralgias or myalgias Integumentary Denies abscess or rash Neurologic Neurologic: Reports headache(s); Denies weakness Psychiatric Psychiatric: Denies anxiety, depression, suicidal ideation or suicidal thoughts Endocrine Endocrinology: Denies polydipsia, polyphagia or polyuria Allergic/Immunologic Allergic/Immunologic ED: Denies mouth swelling, tongue swelling or urticaria EXAM Physical Exam Const Vital Signs: 02/22/21 17:01 02/22/21 17:39 Temperature 98.6 F Temperature Source Oral Pulse Rate 82 Respiratory Rate 18 Respiratory Effort Normal Blood Pressure 131/84 H Blood Pressure Mean 99 Pulse Ox 98 Oxygen Delivery Method Room Air Positive well nourished and well developed General Appearance ED: well developed HEENT Reports normocephalic, head/scalp atraumatic and moist mucous membranes HEENT Narrative: There is a temporal parietal hematoma. No palpable bony depression. trauma Eyes PERRL and EOMs intact bilaterally Neck no lymphadenopathy, supple and no JVD Resp normal respiratory effort and clear to auscultation bilaterally Cardio regular rate, regular rhythm and no murmurs GI normal to inspection, nondistended, normoactive bowel sounds and non-tender Palpation: soft Back/Spine no CVA tenderness and normal ROM Extremity normal to inspection General Extremety ED: Negative for edema General Extremity: Negative for edema Neuro oriented x3 and CN's II-XII intact bilaterally Sensorium / Orientation: alert Motor Exam: strength 5/5 throughout Psych mental status grossly normal Mood & Affect: Negative for depressed or tearful Skin no rashes or lesions noted and no wounds MDM MDM MDM Narrative Medical decision making narrative: CT the brain was negative for hemorrhage or fracture. My interpretation of the chest x-ray is no acute process. EKG is a normal sinus rhythm. She is had no events on the monitor giving the setting in which the syncopal episode took place I suspect that this is vasovagal in nature. I will give the patient some pain medicine for her headache follow-up as needed return if worsening or concerns Radiography Diagnostic Testing: Radiology Impression Brain CT 02/22/21 17:15 IMPRESSION: 1. Normal CT brain. Electronically Signed: Germain Donato MD at 18:16 EDT Tel , Service support , Chest X-Ray 02/22/21 17:50 IMPRESSION: 1. No acute abnormality. 2. Emphysema. Electronically Signed: Germain Donato MD at 18:42 EDT Tel , Service support , EKG Initial EKG: Attestation: I personally reviewed and interpreted this EKG as follows: Comments: EKG demonstrates a normal sinus rhythm at a rate of 78. No concerning features of ACS or ectopy noted. Discharge Plan Triage Chief Complaint: Syncope ED Provider: Phil Rivero Dx/Rx/DC Orders Clinical Impression: Vasovagal syncope, Contusion of scalp, Headache Instructions: ED Head Injury (Adult), ED Fainting, Vagal Reaction Prescriptions: No Action fluoxetine 40 MG capsule 40 mg PO DAILY RF: 0 clonazepam 0.5 MG tablet 0.5 mg PO BID RF: 0 trazodone 100 MG tablet 300 mg PO QHS RF: 0 risperidone 1 MG tablet 1 mg PO DAILY RF: 0 Breo Ellipta 100-25 Mcg INH 1 puff IH DAILY RF: 0 albuterol sulfate [ProAir HFA] 1 PUFF inhaler 1 - 2 puff inhalation Q4H PRN PRN (Reason: Sob &/Or Wheezing) RF: 0 sucralfate 1 GM tablet 1 g PO 4X/DAY RF: 0 pantoprazole 40 MG tablet 40 mg PO DAILY RF: 0 hydrocodone-acetaminophen [[place]] 5-325 mg tablet 1 tab PO Q6H PRN (Reason: pain) Qty: 20 RF: 0 Primary Care Provider: Rossana Rhodes Referrals: Rossana Rhodes MD [Primary Care Provider] - As Needed Disposition Disposition: Home, self care
--- NOTE | 2021-02-22 17:50 | RAD_ITS ---
STUDY: X-RAY CHEST REASON FOR EXAM: Female, 65 years old. syncope TECHNIQUE: Frontal portable view of the chest COMPARISON: 29 August 2019 FINDINGS: The lungs are clear and hyper expanded. There is no demonstrated pleural abnormality. Normal size heart. Normal mediastinum and ivette. Normal visualized pulmonary arteries. Normal visualized aortic arch and descending thoracic aorta. There are remote healed left posterior lateral rib fractures. There is no demonstrated abnormality of the visualized soft tissue structures of the upper abdomen. RAD/Chest 1 View (Portable) IMPRESSION: 1. No acute abnormality. 2. Emphysema. Electronically Signed: Germain Donato MD at 18:42 EDT Tel , Service support ,
[2021-02-22 19:06] VITALS: BP 110/68; PULSE 68; RESP 16; O2SAT 98
[2021-02-22] MEDS: HYDROcodone Bitartrate/Apap 5/325 Tablet PO (19:24)
== END 2021-02-22 19:25 | disposition home or self-care (01) ==
PROVIDERS: Emergency Provider Emergency Medicine; PCP Internal Medicine
DX: R55 Syncope and collapse (principal); S00.03XA Contusion of scalp, initial encounter; F17.210 Nicotine dependence, cigarettes, uncomplicated; X58.XXXA Exposure to other specified factors, initial encounter
CPT/HCPCS: 70450; 71045; 93005; 96360; 96361; 99285; J7030; A4216

== ENCOUNTER 2021-03-12 12:28 | Emergency (ER) | payer MEDICARE, MEDICAID, SELFPAY ==
[2021-03-12 12:29] VITALS: BP 174/96; PULSE 82; RESP 16; TEMP 36.3; O2SAT 98; BMI 18.4
--- NOTE | 2021-03-12 12:56 | EDS_ITS ---
HPI History of Present Illness Chief Complaint: Wound Informant: patient Narrative Narrative: 65-year-old female states that she has lice living in her skin all over her body. She describes them as splinter-like and white. She states she is used a lot of different [id number] medications. She states that at some point and she cannot tell me when she had a bacterial infection from a lidocaine patch on the back of her neck. But she states that that cleared up. She states she has been using an antibacterial wash all over her body. She notes diffuse itching. She notes that she is mentally upset by this. [facility] Medical History Asthma Benign essential hypertension Depression Home Medications clonazepam 0.5 mg PO BID 12/19/16 [History Last Taken 12/19/16] fluoxetine 40 mg PO DAILY 12/19/16 [History Last Taken 12/19/16] risperidone 1 mg PO DAILY 12/19/16 [History Last Taken 12/19/16] trazodone 300 mg PO QHS 12/19/16 [History Last Taken Unknown] Breo Ellipta 100-25 Mcg INH 1 puff IH DAILY 04/08/18 [History Last Taken Unknown] albuterol sulfate [Proair Hfa (SP)Vent Pts] 1 - 2 puff INHALATION Q4H PRN PRN 08/20/18 [History Last Taken Unknown] pantoprazole 40 mg PO DAILY 08/20/18 [History Last Taken Unknown] sucralfate 1 g PO 4X/DAY 08/20/18 [History Last Taken Unknown] hydrocodone-acetaminophen 5-325mg 5mg-325mg 1 tab PO Q6H PRN #20 tab 03/05/19 [Rx Last Taken Unknown] permethrin [Elimite] 1 applic TOPICAL Q14D #60 g 03/12/21 [Rx Last Taken Unknown] prednisone 40 mg PO DAILY #10 tablet 03/12/21 [Rx Last Taken Unknown] Allergy/AdvReac Type Severity Reaction Status Date / Time No Known Allergies Allergy Verified 02/22/21 17:03 Social History Smoking Status: Current every day smoker tobacco type: cigarettes substance use type: does not use ROS ROS ED Constitutional Constitutional ED: Denies chills or weight loss Eyes Eyes: Denies change in vision or diplopia ENT ENT ED: Denies ear pain, rhinorrhea or sore throat Cardiovascular Cardiovascular: Denies chest pain, orthopnea, palpitations or racing heartbeat Respiratory/Chest Respiratory/Chest: Denies cough, dyspnea or orthopnea Gastrointestinal Gastrointestinal: Denies abdominal pain, diarrhea, nausea or vomiting Genitourinary Genitourinary ED: Denies dysuria, hematuria or urinary frequency Musculoskeletal Musculoskeletal: Denies arthralgias or myalgias Integumentary Reports rash; Denies abscess Neurologic Neurologic: Denies headache(s) or weakness Psychiatric Psychiatric: Denies anxiety, depression, suicidal ideation or suicidal thoughts Endocrine Endocrinology: Denies polydipsia, polyphagia or polyuria Allergic/Immunologic Allergic/Immunologic ED: Denies mouth swelling, tongue swelling or urticaria EXAM Physical Exam Const Vital Signs: 03/12/21 12:29 Temperature 97.4 F L Temperature Source Oral Pulse Rate 82 Respiratory Rate 16 Blood Pressure 174/96 H Blood Pressure Mean 122 Pulse Ox 98 Oxygen Delivery Method Room Air Positive well nourished and well developed General Appearance ED: well developed HEENT Reports normocephalic, head/scalp atraumatic and moist mucous membranes Eyes PERRL and EOMs intact bilaterally Neck no lymphadenopathy, supple and no JVD Neck Narrative: Back of the neck shows generalized erythema that blanches. She has numerous excoriated lesions without signs of secondary infection. She has multiple excoriated lesions on her legs and arms that some appear in a linear pattern. I do not see anything in between the webspaces of the hand. Resp normal respiratory effort and clear to auscultation bilaterally Cardio regular rate, regular rhythm and no murmurs GI normal to inspection, nondistended, normoactive bowel sounds and non-tender Palpation: soft Back/Spine no CVA tenderness and normal ROM Extremity normal to inspection General Extremety ED: Negative for edema General Extremity: Negative for edema Neuro oriented x3 and CN's II-XII intact bilaterally Sensorium / Orientation: alert Motor Exam: strength 5/5 throughout Psych mental status grossly normal Mood & Affect: tearful; Negative for depressed Skin no rashes or lesions noted and no wounds MDM MDM MDM Narrative Medical decision making narrative: I do not think the patient has lice live in her skin. She may have some scabies and we can use of permethrin cream. I recommend that the patient not use any more soaps shampoos or anything else on the back of her neck and allow the skin to heal. Discharge Plan Triage Chief Complaint: Wound ED Provider: Phil Rivero Dx/Rx/DC Orders Clinical Impression: Dermatitis Instructions: Understanding Contact Dermatitis Prescriptions: New prednisone 20 MG tablet 40 mg PO DAILY Qty: 10 RF: 0 permethrin [Elimite] 5 % cream 1 applic topical Q14D Qty: 60 RF: 0 No Action fluoxetine 40 MG capsule 40 mg PO DAILY RF: 0 clonazepam 0.5 MG tablet 0.5 mg PO BID RF: 0 trazodone 100 MG tablet 300 mg PO QHS RF: 0 risperidone 1 MG tablet 1 mg PO DAILY RF: 0 Breo Ellipta 100-25 Mcg INH 1 puff IH DAILY RF: 0 albuterol sulfate [ProAir HFA] 1 PUFF inhaler 1 - 2 puff inhalation Q4H PRN PRN (Reason: Sob &/Or Wheezing) RF: 0 sucralfate 1 GM tablet 1 g PO 4X/DAY RF: 0 pantoprazole 40 MG tablet 40 mg PO DAILY RF: 0 hydrocodone-acetaminophen [[place]] 5-325 mg tablet 1 tab PO Q6H PRN (Reason: pain) Qty: 20 RF: 0 Primary Care Provider: Rossana Rhodes Referrals: Rossana Rhodes MD [Primary Care Provider] - 1 Week Disposition Disposition: Home, Self Care
== END 2021-03-12 13:18 | disposition home or self-care (01) ==
LOC: ED 13:08
PROVIDERS: Emergency Provider Emergency Medicine; PCP Internal Medicine
DX: L30.9 Dermatitis, unspecified (principal); I10 Essential (primary) hypertension; F32.9 Major depressive disorder, single episode, unspecified; J45.909 Unspecified asthma, uncomplicated; Z79.899 Other long term (current) drug therapy; F17.210 Nicotine dependence, cigarettes, uncomplicated
CPT/HCPCS: 99282

== ENCOUNTER 2021-04-29 10:21 | Emergency (ER) | payer MEDICARE, MEDICAID, SELFPAY ==
[2021-04-29 10:23] VITALS: BP 173/105; PULSE 60; RESP 107; TEMP 36.1; O2SAT 99; BMI 19.8
--- NOTE | 2021-04-29 10:50 | EX.ED.DYSGE1 ---
HPI History of Present Illness Chief Complaint: Rash Informant: patient Narrative Narrative: Patient presents secondary to skin concerns. She states that she has bugs coming out of her skin. Patient was seen here in the end of February for similar. She was written for permethrin cream at that time. Patient states that did improve her symptoms but she still has some spots noted. [facility] Medical History Asthma Benign essential hypertension Depression Home Medications clonazepam 0.5 mg PO BID 12/19/16 [History Last Taken 12/19/16] fluoxetine 40 mg PO DAILY 12/19/16 [History Last Taken 12/19/16] risperidone 1 mg PO DAILY 12/19/16 [History Last Taken 12/19/16] trazodone 300 mg PO QHS 12/19/16 [History Last Taken Unknown] Breo Ellipta 100-25 Mcg INH 1 puff IH DAILY 04/08/18 [History Last Taken Unknown] albuterol sulfate [Proair Hfa (SP)Vent Pts] 1 - 2 puff INHALATION Q4H PRN PRN 08/20/18 [History Last Taken Unknown] pantoprazole 40 mg PO DAILY 08/20/18 [History Last Taken Unknown] sucralfate 1 g PO 4X/DAY 08/20/18 [History Last Taken Unknown] hydrocodone-acetaminophen 5-325mg 5mg-325mg 1 tab PO Q6H PRN #20 tab 03/05/19 [Rx Last Taken Unknown] permethrin [Elimite] 1 applic TOPICAL Q14D #60 g 03/12/21 [Rx Last Taken Unknown] prednisone 40 mg PO DAILY #10 tablet 03/12/21 [Rx Last Taken Unknown] permethrin 1 applic TOPICAL Q14D #60 g 04/29/21 [Rx Last Taken Unknown] Allergy/AdvReac Type Severity Reaction Status Date / Time No Known Allergies Allergy Verified 04/29/21 10:22 Social History Smoking Status: Current every day smoker tobacco type: cigarettes substance use type: does not use ROS ROS ED Constitutional Constitutional ED: Denies chills or fever(s) Eyes Eyes: Denies change in vision ENT ENT ED: Denies sore throat Cardiovascular Cardiovascular: Denies chest pain Respiratory/Chest Respiratory/Chest: Denies cough or dyspnea Gastrointestinal Gastrointestinal: Denies abdominal pain, diarrhea or vomiting Musculoskeletal Musculoskeletal: Denies back pain Integumentary Reports rash Neurologic Neurologic: Denies headache(s) or weakness Allergic/Immunologic Allergic/Immunologic ED: Denies urticaria EXAM Physical Exam Const Vital Signs: 04/29/21 10:23 04/29/21 11:17 Temperature 97 F L Temperature Source Temporal Pulse Rate 60 Respiratory Rate 107 H 17 Blood Pressure 173/105 H Blood Pressure Mean 127 Pulse Ox 99 Oxygen Delivery Method Room Air Positive well developed General Appearance ED: well developed HEENT HEENT Narrative: Skin thickening noted to the back of the neck from chronic picking. No secondary infection. Eyes PERRL and EOMs intact bilaterally Neck supple Chest Wall inspection of chest normal and palpation of chest normal Resp normal respiratory effort and clear to auscultation bilaterally Cardio regular rate and regular rhythm Extremity Extremity Narrative: 0.5 x 2 cm area of skin breakdown along the medial right calf. This appears to be from patient picking. It does not appear to be secondarily infected. Patient has multiple freckle-like lesions over her forearms that she believes are bugs. Neuro oriented x3 Sensorium / Orientation: alert MDM MDM Treatment and Re-Evaluation Comments:: At this time I see no sign of secondary infection. Patient has been picking at her skin. Because she did note such significant improvement with permethrin previously she will be given a second round of it at this time. Dermatology follow-up referral provided. Discharge Plan Triage Chief Complaint: Rash ED Provider: Autumn Hensley Dx/Rx/DC Orders Clinical Impression: Dermatitis Instructions: Self-Care for Skin Rashes Prescriptions: New permethrin 5 % cream 1 applic topical Q14D Qty: 60 RF: 0 No Action fluoxetine 40 MG capsule 40 mg PO DAILY RF: 0 clonazepam 0.5 MG tablet 0.5 mg PO BID RF: 0 trazodone 100 MG tablet 300 mg PO QHS RF: 0 risperidone 1 MG tablet 1 mg PO DAILY RF: 0 Breo Ellipta 100-25 Mcg INH 1 puff IH DAILY RF: 0 albuterol sulfate [ProAir HFA] 1 PUFF inhaler 1 - 2 puff inhalation Q4H PRN PRN (Reason: Sob &/Or Wheezing) RF: 0 sucralfate 1 GM tablet 1 g PO 4X/DAY RF: 0 pantoprazole 40 MG tablet 40 mg PO DAILY RF: 0 prednisone 20 MG tablet 40 mg PO DAILY Qty: 10 RF: 0 permethrin [Elimite] 5 % cream 1 applic topical Q14D Qty: 60 RF: 0 hydrocodone-acetaminophen [[place]] 5-325 mg tablet 1 tab PO Q6H PRN (Reason: pain) Qty: 20 RF: 0 Primary Care Provider: Rossana Rhodes Referrals: Amy Youssef MD [NON-STAFF] - Rossana Rhodes MD [Primary Care Provider] - Disposition Disposition: Home, Self Care Discharge Date/Time: 04/29/21 11:18
[2021-04-29 11:17] VITALS: RESP 17
== END 2021-04-29 11:18 | disposition home or self-care (01) ==
PROVIDERS: Emergency Provider Emergency Medicine; PCP Internal Medicine
DX: L30.9 Dermatitis, unspecified (principal); I10 Essential (primary) hypertension; F32.9 Major depressive disorder, single episode, unspecified; J45.909 Unspecified asthma, uncomplicated; Z79.51 Long term (current) use of inhaled steroids; Z79.899 Other long term (current) drug therapy; F17.210 Nicotine dependence, cigarettes, uncomplicated
CPT/HCPCS: 99282

== ENCOUNTER 2021-06-26 20:10 | Emergency (ER) | payer MEDICARE, MEDICAID, SELFPAY ==
[2021-06-26 20:13] VITALS: BP 145/55; PULSE 84; RESP 18; TEMP 36.6; O2SAT 99; BMI 29.1
--- NOTE | 2021-06-26 22:37 | EKG12_ITS ---
Test Reason : FALL Blood Pressure : / mmHG Vent. Rate : 078 BPM Atrial Rate : 078 BPM P-R Int : 134 ms QRS Dur : 066 ms QT Int : 378 ms P-R-T Axes : 080 076 072 degrees QTc Int : 430 ms Normal sinus rhythm Normal ECG Confirmed by LIBORIO PELLETIER, HANG ([id number]), managing editor RENÉ HOUSTON ([id number]) on 07/02/2021 6:37:50 AM Referred By: CAN Confirmed By:HANG CAPONE MD
--- NOTE | 2021-06-26 22:37 | CT_ITS ---
STUDY: CT BRAIN WITHOUT CONTRAST REASON FOR EXAM: Female, 65 years old. head injury RADIATION DOSAGE (If Supplied By Facility): CTDIvol = ( 44.99 ) mGy, DLP = ( 745.49 ) mGycm TECHNIQUE: Transaxial CT imaging of the brain was performed without administration of intravenous contrast material. Individualized dose optimization techniques were used for this CT. COMPARISON: 02/22/2021 FINDINGS: Normal soft tissue structures. Normal calvarium. Normal size ventricles and extra-axial spaces for the patient''s age. Normal white matter tracts of the cerebral hemispheres. Normal basal ganglia and thalami. Normal brainstem. Normal cerebellum. There is no intracranial hemorrhage. There are no findings of an acute ischemic infarction. Normal visualized paranasal sinuses. CT/Brain/Head without Contrast IMPRESSION: Normal unenhanced CT scan of the brain. Electronically Signed: Rohan Bolivar DO at 23:28 EDT Tel , Service support ,
--- NOTE | 2021-06-26 22:38 | EDS_ITS ---
HPI History of Present Illness Chief Complaint: Fall Informant: patient Narrative Narrative: 65-year-old female presenting to the emergency room following a head injury. Patient states that since January she has been having syncopal episodes where she collapses. She states that she has been evaluated in the emergency room and by her primary care doctor. She states that today she had another syncopal episode where she was standing and got very lightheaded. States she fell to the screen door. She talked to her doctor's nurse and they recommended that she come to the emergency room for a CAT scan of her head. The patient denies any lacerations or hematomas. Patient denies any palpitations prior to the event. No chest pain or shortness of breath. She states she would've come in earlier but the car was not available to bring her here. Patient is curren tly homeless and taking care of her adult son. They are staying with friends. She states that she is under a significant amount of stress. [facility] Medical History Asthma Benign essential hypertension Depression Home Medications clonazepam 0.5 mg PO BID 12/19/16 [History Last Taken 12/19/16] fluoxetine 40 mg PO DAILY 12/19/16 [History Last Taken 12/19/16] risperidone 1 mg PO DAILY 12/19/16 [History Last Taken 12/19/16] trazodone 300 mg PO QHS 12/19/16 [History Last Taken Unknown] Breo Ellipta 100-25 Mcg INH 1 puff IH DAILY 04/08/18 [History Last Taken Unknown] albuterol sulfate [Proair Hfa (SP)Vent Pts] 1 - 2 puff INHALATION Q4H PRN PRN 08/20/18 [History Last Taken Unknown] pantoprazole 40 mg PO DAILY 08/20/18 [History Last Taken Unknown] sucralfate 1 g PO 4X/DAY 08/20/18 [History Last Taken Unknown] hydrocodone-acetaminophen 5-325mg 5mg-325mg 1 tab PO Q6H PRN #20 tab 03/05/19 [Rx Last Taken Unknown] permethrin [Elimite] 1 applic TOPICAL Q14D #60 g 03/12/21 [Rx Last Taken Unknown] prednisone 40 mg PO DAILY #10 tablet 03/12/21 [Rx Last Taken Unknown] permethrin 1 applic TOPICAL Q14D #60 g 04/29/21 [Rx Last Taken Unknown] Allergy/AdvReac Type Severity Reaction Status Date / Time No Known Allergies Allergy Verified 04/29/21 10:22 Social History Smoking Status: Current every day smoker tobacco type: cigarettes substance use type: does not use ROS ROS ED Constitutional Constitutional ED: Denies chills or weight loss Eyes Eyes: Denies change in vision or diplopia ENT ENT ED: Denies ear pain, rhinorrhea or sore throat Cardiovascular Cardiovascular: Reports other Details: Syncope ; Denies chest pain, orthopnea, palpitations or racing heartbeat Respiratory/Chest Respiratory/Chest: Denies cough, dyspnea or orthopnea Gastrointestinal Gastrointestinal: Denies abdominal pain, diarrhea, nausea or vomiting Genitourinary Genitourinary ED: Denies dysuria, hematuria or urinary frequency Musculoskeletal Musculoskeletal: Denies arthralgias or myalgias Integumentary Reports other Details: Reports rash on her neck which she is picking up a cream tomorrow that was prescribed by her doctor ; Denies abscess Neurologic Neurologic: Denies headache(s) or weakness Psychiatric Psychiatric: Denies anxiety, depression, suicidal ideation or suicidal thoughts Endocrine Endocrinology: Denies polydipsia, polyphagia or polyuria Allergic/Immunologic Allergic/Immunologic ED: Denies mouth swelling, tongue swelling or urticaria EXAM Physical Exam Const Vital Signs: 06/26/21 20:13 06/26/21 22:56 Temperature 97.9 F Temperature Source Temporal Pulse Rate 84 89 Respiratory Rate 18 15 Blood Pressure 145/55 H 168/90 H Blood Pressure Mean 85 116 Pulse Ox 99 96 Oxygen Delivery Method Room Air Room Air Positive well nourished and well developed General Appearance ED: well developed HEENT Reports normocephalic, head/scalp atraumatic and moist mucous membranes Eyes PERRL and EOMs intact bilaterally Neck no lymphadenopathy, supple and no JVD Resp normal respiratory effort and clear to auscultation bilaterally Cardio regular rate, regular rhythm and no murmurs GI normal to inspection, nondistended, normoactive bowel sounds and non-tender Palpation: soft Back/Spine no CVA tenderness and normal ROM Extremity normal to inspection General Extremety ED: Negative for edema General Extremity: Negative for edema Neuro oriented x3 and CN's II-XII intact bilaterally Sensorium / Orientation: alert Motor Exam: strength 5/5 throughout Psych mental status grossly normal Mood & Affect: Negative for depressed or tearful Skin no rashes or lesions noted and no wounds MDM MDM MDM Narrative Medical decision making narrative: CT of the brain was obtained and is negative. My interpretation of the chest x-ray is no acute process. CBC is normal. BMP shows a creatinine of 1.55 and a potassium of 3.4. Troponin high-sensitivity is 7. She is had no events on the monitor. At this point patient be discharged home. Directions to follow-up with her doctor return if worsening or concerns Lab Data Attestation: I reviewed the patient's lab results. Labs: Laboratory Results - last 24 hr 06/26/21 06/26/21 22:54 22:54 WBC 9.4 RBC 4.50 Hgb 13.1 Hct 41.1 MCV 91.3 MCH 29.1 MCHC 31.9 L RDW Std Deviation 47.8 H RDW Coeff of [place] 14.2 Plt Count 414 MPV 9.4 Immature Gran % (Auto) 0.300 Neut % (Auto) 61.3 Lymph % (Auto) 27.4 Murray % (Auto) 7.9 Eos % (Auto) 2.5 Baso % (Auto) 0.6 Absolute Neuts (auto) 5.7 Absolute Lymphs (auto) 2.56 Nucleated RBC % 0 Sodium 142 Potassium 3.4 L Chloride 105 Carbon Dioxide 33.0 H Anion Gap 4 L BUN 22 H Creatinine 1.55 H Estim Creat Clear Calc 25.07 Est GFR (MDRD) Af Amer 43 L Est GFR (MDRD) Non-Af 36 L BUN/Creatinine Ratio 14.2 Glucose 77 Calcium 9.0 Troponin I High Sens 7 Radiography Diagnostic Testing: Clinical Impression(s) from Imaging Studies Brain CT 06/26/21 22:37 IMPRESSION: Normal unenhanced CT scan of the brain. Electronically Signed: Rohan Bolivar DO at 23:28 EDT Tel , Service support , EKG Initial EKG: Attestation: I personally reviewed and interpreted this EKG as follows: Comments: Normal sinus rhythm with a ventricular rate of 78 bpm. No concerning features of ACS or ectopy noted. Discharge Plan Triage Chief Complaint: Fall ED Provider: Phil Rivero Dx/Rx/DC Orders Clinical Impression: Syncope and collapse, Head injury Instructions: ED Fainting, Uncertain Cause, ED Head Injury (Adult) Prescriptions: No Action fluoxetine 40 MG capsule 40 mg PO DAILY RF: 0 clonazepam 0.5 MG tablet 0.5 mg PO BID RF: 0 trazodone 100 MG tablet 300 mg PO QHS RF: 0 risperidone 1 MG tablet 1 mg PO DAILY RF: 0 Breo Ellipta 100-25 Mcg INH 1 puff IH DAILY RF: 0 albuterol sulfate [ProAir HFA] 1 PUFF inhaler 1 - 2 puff inhalation Q4H PRN PRN (Reason: Sob &/Or Wheezing) RF: 0 sucralfate 1 GM tablet 1 g PO 4X/DAY RF: 0 pantoprazole 40 MG tablet 40 mg PO DAILY RF: 0 prednisone 20 MG tablet 40 mg PO DAILY Qty: 10 RF: 0 permethrin [Elimite] 5 % cream 1 applic topical Q14D Qty: 60 RF: 0 permethrin 5 % cream 1 applic topical Q14D Qty: 60 RF: 0 hydrocodone-acetaminophen [[place]] 5-325 mg tablet 1 tab PO Q6H PRN (Reason: pain) Qty: 20 RF: 0 Primary Care Provider: Rossana Rhodes Referrals: Rossana Rhodes MD [Primary Care Provider] - As soon as possible Disposition Disposition: Home, Self Care
[2021-06-26 22:56] VITALS: BP 168/90; PULSE 89; RESP 15; O2SAT 96
[2021-06-26 23:04] LABS: Absolute Lymphocyte Count 2.56 X10^3/uL (0.83-4.51); Absolute Neutrophil Count 5.7 X10^3/uL (2.0-7.7); Basophil# 0.06 X10^3/uL; Basophil% 0.6 % (0-1); Eosinophil# 0.23 X10^3/uL; Eosinophils% 2.5 % (0-5); Hematocrit 41.1 % (37-47); Hemoglobin 13.1 g/dL (12.0-15.0); Lymphocyte # 2.56 X10^3/ul (0.83-4.51); Lymphocyte % 27.4 % (19-41); Mean Corp Hgb Conc 31.9 g/dL (32-36); Mean Corpuscular Hgb 29.1 pg (27.0-32.0); Mean Corpuscular Volume 91.3 fL (81-99); Mean Platelet Vol. 9.4 fl (6.2-12.0); Monocyte# 0.74 X10^3/uL; Monocyte% 7.9 % (0-10); NRBC Flagged by Analyzer 0 % (0-5); Neutrophil # 5.73 X10^3/uL (2.7-7.7); Neutrophil % 61.3 % (47-70); Platelet Count 414 K/mm3 (150-450); RBC Distribution Width CV 14.2 % (11.6-14.6); RBC Distribution Width SD 47.8 fl (35.1-43.9); White Blood Count 9.4 K/mm3 (4.4-11.0)
--- NOTE | 2021-06-26 23:11 | RAD_ITS ---
STUDY: X-RAY CHEST REASON FOR EXAM: Female, 65 years old. syncope TECHNIQUE: Single AP portable view of the chest. COMPARISON: 02/22/2021 FINDINGS: There is hyperinflation of the lungs consistent with chronic obstructive lung disease (COPD). Lungs are clear. There is no demonstrated pleural abnormality. Normal size heart. Normal mediastinum and ivette. Normal visualized pulmonary arteries. Normal visualized aortic arch and descending thoracic aorta. Normal visualized thoracic spine. Normal visualized ribs, clavicles, and shoulders. There is no demonstrated abnormality of the visualized soft tissue structures of the upper abdomen. RAD/Chest 1 View (Portable) IMPRESSION: COPD. Lungs are clear. Electronically Signed: Rohan Bolivar DO at 23:32 EDT Tel , Service support ,
[2021-06-26 23:18] LABS: Anion Gap 4 (5-15); BUN 22 mg/dL (7-18); BUN/Creat Ratio 14.2 RATIO (10-20); Chloride 105 mmol/L (98-107); Creatinine, Serum 1.55 mg/dL (0.55-1.02); EST Glomerular Filtration Rate 36 mL/min (>60); Est Glom Filt Rate - Afr Amer 43 mL/min (>60); Estimated Creatinine Clearance 25.07 ml/min; Glucose 77 mg/dL (74-106); Potassium 3.4 mmol/L (3.5-5.1); Sodium Level 142 mmol/L (136-145); Troponin-I HS 7 pg/mL (3.0-54.0)
[2021-06-26 23:50] VITALS: BP 145/77; PULSE 76; RESP 16; O2SAT 98
== END 2021-06-26 23:50 | disposition home or self-care (01) ==
PROVIDERS: Emergency Provider Emergency Medicine; PCP Internal Medicine
DX: S09.90XA Unspecified injury of head, initial encounter (principal); R55 Syncope and collapse; W19.XXXA Unspecified fall, initial encounter; Y93.9 Activity, unspecified; Y92.9 Unspecified place or not applicable; R21 Rash and other nonspecific skin eruption; Z59.00 Homelessness unspecified; I10 Essential (primary) hypertension; F32.9 Major depressive disorder, single episode, unspecified; J44.9 Chronic obstructive pulmonary disease, unspecified; Z79.899 Other long term (current) drug therapy; F17.210 Nicotine dependence, cigarettes, uncomplicated
CPT/HCPCS: 36415; 70450; 71045; 80048; 84484; 85025; 93005; 99283

== ENCOUNTER 2021-07-17 13:38 | Emergency (ER) | payer MEDICARE, MEDICAID, SELFPAY ==
[2021-07-17 13:41] VITALS: BP 141/66; PULSE 89; RESP 22; TEMP 36.4; O2SAT 100; BMI 18.6
[2021-07-17 13:47] VITALS: BP 141/66; PULSE 89; RESP 22; TEMP 36.4; O2SAT 100
--- NOTE | 2021-07-17 14:23 | RAD_ITS ---
STUDY: X-RAY CHEST REASON FOR EXAM: Female, 65 years old. Headaches, cough and dyspnea. TECHNIQUE: Single AP portable view of the chest. COMPARISON: Comparison is made with prior study dated 06/26/2021. FINDINGS: There is hyperinflation of the lungs consistent with chronic obstructive lung disease (COPD). There is no demonstrated pleural abnormality. Normal size heart. Normal mediastinum and ivette. Normal visualized pulmonary arteries. Normal visualized aortic arch and descending thoracic aorta. Normal visualized thoracic spine. Normal visualized ribs, clavicles, and shoulders. There is no demonstrated abnormality of the visualized soft tissue structures of the upper abdomen. RAD/Chest 1 View (Portable) IMPRESSION: Hyperinflation. Electronically Signed: Gutierrez Francis MD at 15:21 EDT , Service support ,
--- NOTE | 2021-07-17 14:24 | EKG12_ITS ---
Test Reason : HEADACHE Blood Pressure : / mmHG Vent. Rate : 073 BPM Atrial Rate : 073 BPM P-R Int : 144 ms QRS Dur : 062 ms QT Int : 410 ms P-R-T Axes : 071 072 065 degrees QTc Int : 451 ms Normal sinus rhythm Normal ECG Confirmed by FABIANA PELLETIER, JOSH ([id number]), news video editor RENÉ HOUSTON ([id number]) on 07/22/2021 10:02:34 A M Referred By: LAUREEN Confirmed By:JASPAL JUNG MD
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
[2021-07-17] MEDS: Acetaminophen 325 MG Tablet 650 MG PO (14:43)
[2021-07-17 14:50] VITALS: BP 156/81; PULSE 78; RESP 20; TEMP 36.6; O2SAT 100
[2021-07-17 15:03] LABS: Absolute Lymphocyte Count 1.68 X10^3/uL (0.83-4.51); Absolute Neutrophil Count 9.3 X10^3/uL (2.0-7.7); Basophil# 0.05 X10^3/uL; Basophil% 0.4 % (0-1); Eosinophil# 0.16 X10^3/uL; Eosinophils% 1.3 % (0-5); Hematocrit 38.3 % (37-47); Hemoglobin 12.3 g/dL (12.0-15.0); Lymphocyte # 1.68 X10^3/ul (0.83-4.51); Lymphocyte % 14.1 % (19-41); Mean Corp Hgb Conc 32.1 g/dL (32-36); Mean Corpuscular Hgb 28.7 pg (27.0-32.0); Mean Corpuscular Volume 89.3 fL (81-99); Mean Platelet Vol. 9.2 fl (6.2-12.0); Monocyte% 5.9 % (0-10); NRBC Flagged by Analyzer 0 % (0-5); Neutrophil # 9.28 X10^3/uL (2.7-7.7); Platelet Count 484 K/mm3 (150-450); RBC Distribution Width SD 45.6 fl (35.1-43.9); Red Blood Count 4.29 M/mm3 (4.2-5.4); White Blood Count 11.9 K/mm3 (4.4-11.0)
[2021-07-17 15:20] LABS: Anion Gap 6 (5-15); BUN 6 mg/dL (7-18); BUN/Creat Ratio 7.6 RATIO (10-20); Calcium,Total 9.3 mg/dL (8.5-10.1); Chloride 101 mmol/L (98-107); Creatinine, Serum 0.79 mg/dL (0.55-1.02); EST Glomerular Filtration Rate 77 mL/min (>60); Est Glom Filt Rate - Afr Amer 94 mL/min (>60); Estimated Creatinine Clearance 47.39 ml/min; Glucose 62 mg/dL (74-106); Sodium Level 136 mmol/L (136-145); Troponin-I HS 5 pg/mL (3.0-54.0)
[2021-07-17 15:33] LABS: Bacteria 0 SEEN /hpf (None Seen); Mucous, Urine 0 SEEN /hpf (<or=2+); Red Blood Cells-Urine 0 SEEN /hpf (0-5); White Blood Cells 0 SEEN /hpf (0-5)
[2021-07-17 15:44] LABS: Color, Urine Straw (Yellow); Glucose, Dipstick Normal (Normal); Ketone-Dipstick Negative (Negative); Leukocyte Esterase-Dipstick Negative /ul (Negative); Nitrite-Dipstick Negative (Negative); Occult Blood-Urine Negative /ul (Negative); Protein-Dipstick Negative (Negative); Specific Gravity, Urine 1.005 (1.002-1.030); Urine Bilirubin Dipstick Negative (Negative); Urine Clarity Sl. Cloudy (Clear); Urine Urobilinogen Normal (Normal)
[2021-07-17 16:07] LABS: Squamous Epithelial Cells - UA 0-5 SEEN /hpf (5-10)
[2021-07-17 16:09] VITALS: BP 144/95
[2021-07-17] MEDS: Potassium Chloride Oral Tablet 20 MEQ 40 MEQ PO (16:11)
[2021-07-17 16:22] LABS: Amphetamine Urine VISTA POSITIVE (<1000 ng/mL); Barbiturate Urine VISTA NEGATIVE (< 200 ng/mL); Benzodiazepine Urine VISTA NEGATIVE (< 200 ng/mL); Cocaine Urine VISTA NEGATIVE (< 300 ng/mL); Ecstacy Urine VISTA NEGATIVE (< 500 ng/mL); Methadone Urine VISTA NEGATIVE (< 300 ng/mL); PCP Urine VISTA NEGATIVE (< 25 ng/mL); THC Urine VISTA POSITIVE (< 50 ng/mL); Vista UDS pH Range 6
--- NOTE | 2021-07-17 16:59 | CM.ED ---
SOCIAL WORK Call to [facility], no beds available. Dr. Pauline lópez. Merari. Jeannette, OCCUPATIONAL NURSE, GLORY HOLE TENDER
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
[2021-07-17 17:41] VITALS: BP 124/75; PULSE 96; RESP 16
== END 2021-07-17 17:42 | disposition home or self-care (01) ==
PROVIDERS: Emergency Provider Emergency Medicine; PCP Internal Medicine
DX: R51.9 Headache, unspecified (principal); J06.9 Acute upper respiratory infection, unspecified; Z59.00 Homelessness unspecified; E87.6 Hypokalemia; I10 Essential (primary) hypertension; F25.9 Schizoaffective disorder, unspecified; J44.9 Chronic obstructive pulmonary disease, unspecified; F32.A Depression, unspecified; Z79.899 Other long term (current) drug therapy; F17.210 Nicotine dependence, cigarettes, uncomplicated
CPT/HCPCS: 71045; 80048; 80307; 81001; 82077; 84484; 85025; 87426; 93005; 96360; 96361; 99285; J7040